=== PATIENT | female | born 1980 | race Caucasian/White ===

== ENCOUNTER 2017-03-30 09:33 | Emergency (ER) | payer OTHER ==
[~2017-03-30] VITALS: Ht 172.7 cm; Wt 83.9 kg
[~2017-03-30 09:33] MED LIST: ACETAMINOPHEN-1 EAC1 PO; AUGMENTIN 875875 M1 PO; BACTRIM DS TAB1 EAC1 PO; BACTRIM DS TAB1 EACH PO; CLONAZEPAM 0.50.5 M1 PO; IBUPROFEN 800800 M1 PO; IBUPROFEN200 M2 PO; KEFLEX500 M1 PO; KEFLEX500 MG PO; LEVAQUIN 500 M500 MG PO; LISINOPRIL20 MG PO; LOPRESSOR50 PO; NICOTINE TRANSD21 M1 TD; NORCO 5-325 TA1 EACH PO; PERCOCET 5-3251 EACH PO; PERCOCET PO; TRAMADOL 50 MG50 MG PO; TUMS PO; ULTRAM 50MG TAB50 MG PO; ZOFRAN ODT4 MG PO
[2017-03-30 09:53] LABS: URINE BILIRUBIN NEGATIVE (Negative); URINE BLOOD NEGATIVE (Negative); URINE CLARITY CLEAR; URINE COLOR YELLOW; URINE GLUCOSE-RANDOM NEGATIVE (Negative); URINE KETONES NEGATIVE (Negative); URINE LEUKOCYTES-REFLEX TRACE (Negative); URINE NITRITE-REFLEX NEGATIVE (Negative); URINE PROTEIN NEGATIVE (Negative); URINE SPECIFIC GRAVITY >= 1.030 (1.005-1.030); URINE UROBILINOGEN 0.2 E.U./dl (0.2-1.0)
[2017-03-30 10:01] LABS: ABSOLUTE EOSINOPHILS 0.1 thou/uL (0.0-0.7); ABSOLUTE LYMPHOCYTES 1.5 thou/uL (0.8-5.3); ABSOLUTE MONOCYTES 0.5 thou/uL (0.0-1.2); ABSOLUTE NEUTROPHILS 5.5 thou/uL (1.6-8.1); BASOPHILS 0.5 %; HEMATOCRIT 44.5 % (37.0-47.0); HEMOGLOBIN 15.1 gm/dL (12.0-15.0); LYMPHOCYTES 19.2 %; MCH 32.9 pg (26.0-34.0); MCHC 33.9 g/dL (28.0-37.0); MONOCYTES 6.5 %; MPV 8.3 fl. (7.2-11.1); NUCLEATED RBCS 0 /100WBC; PLATELET COUNT* 247 thou/uL (150-400); POLYS 72.8 %; RBC 4.59 mil/uL (4.20-5.00); RDW-CV 12.7 % (10.5-14.5); WBC 7.6 thou/uL (4.0-11.0)
[2017-03-30 10:07] LABS: CALCIUM 8.4 mg/dL (8.5-10.1); CREATININE 1.1 mg/dL (0.6-1.3); POTASSIUM 3.6 mmol/L (3.5-5.1)
[2017-03-30 10:09] LABS: BACTERIA-REFLEX 1-9 Few /HPF (None Seen); CASTS None Seen /LPF (None Seen); CRYSTALS None Seen /LPF (None Seen); MUCUS None Seen strn/LPF (None Seen); SQUAMOUS >10 Many /LPF (0-3); URINE RBC 0-2 Rare /HPF (0-2); URINE WBC-REFLEX 0-5 Rare /HPF (0-5)
[2017-03-30 10:11] LABS: ALBUMIN 3.4 g/dL (3.4-5.0); TOTAL BILIRUBIN 0.6 mg/dL (<0.1-1.0); TOTAL PROTEIN 7.2 g/dL (6.4-8.2)
[2017-03-30 10:35] VITALS: BP 157/95
== END 2017-03-30 10:36 | disposition home or self-care (01) ==
LOC: M.ERS 09:33
PROVIDERS: Family Medicine
DX: R10.10 Upper abdominal pain, unspecified (principal); I10 Essential (primary) hypertension; F41.9 Anxiety disorder, unspecified; F17.210 Nicotine dependence, cigarettes, uncomplicated; Z88.5 Allergy status to narcotic agent

== ENCOUNTER 2017-06-02 15:07 | Emergency (ER) | payer OTHER ==
[~2017-06-02] VITALS: Ht 172.7 cm; Wt 86.2 kg
[2017-06-02] MEDS ORDERED: FENOFIBRATE160 MG PO (15:21)
[2017-06-02] MEDS ORDERED: UNICOMPLEX M TA1 TA1 PO (15:21)
[2017-06-02] MEDS ORDERED: CLARITIN10 M3 PO (15:21)
[2017-06-02] MEDS ORDERED: KEFLEX500 M1 PO (15:45)
[2017-06-02] MEDS ORDERED: BACTRIM DS TAB1 EACH PO (15:45)
[2017-06-02] MEDS ORDERED: NORCO 5-325 TA1 EACH PO (15:48)
[2017-06-02 16:07] VITALS: BP 132/90
== END 2017-06-02 16:08 | disposition home or self-care (01) ==
LOC: M.ERS 15:07
DX: L02.412 Cutaneous abscess of left axilla (principal); I10 Essential (primary) hypertension; F41.9 Anxiety disorder, unspecified; E78.5 Hyperlipidemia, unspecified; F17.210 Nicotine dependence, cigarettes, uncomplicated; Z88.5 Allergy status to narcotic agent

== ENCOUNTER 2018-02-07 11:11 | Emergency (ER) | payer OTHER ==
[~2018-02-07] VITALS: Ht 175.3 cm; Wt 79.4 kg
[~2018-02-07 11:11] MED LIST changes: +CLARITIN10 M3 PO; +FENOFIBRATE160 MG PO; +UNICOMPLEX M TA1 TA1 PO
[2018-02-07 11:44] LABS: URINE BILIRUBIN NEGATIVE (Negative); URINE BLOOD NEGATIVE (Negative); URINE CLARITY CLEAR; URINE COLOR YELLOW; URINE GLUCOSE-RANDOM NEGATIVE (Negative); URINE KETONES NEGATIVE (Negative); URINE LEUKOCYTES 2+ (Negative); URINE NITRITE NEGATIVE (Negative); URINE PROTEIN NEGATIVE (Negative); URINE SPECIFIC GRAVITY 1.015 (1.005-1.030); URINE UROBILINOGEN 0.2 E.U./dl (0.2-1.0)
[2018-02-07 11:54] LABS: AMP/METHAMP Negative (Negative); BARBITURATES Negative (Negative); BENZODIAZEPINES Negative (Negative); COCAINE POSITIVE (Negative); METHADONE Negative (Negative); OPIATES Negative (Negative); PCP Negative (Negative); THC POSITIVE (Negative)
[2018-02-07 12:02] LABS: ABSOLUTE BASOPHILS 0.1 thou/uL (0.0-0.2); ABSOLUTE EOSINOPHILS 0.1 thou/uL (0.0-0.7); ABSOLUTE LYMPHOCYTES 1.8 thou/uL (0.8-5.3); ABSOLUTE MONOCYTES 0.8 thou/uL (0.0-1.2); ABSOLUTE NEUTROPHILS 7.8 thou/uL (1.6-8.1); BASOPHILS 0.7 %; EOSINOPHILS 0.7 %; HEMATOCRIT 43.1 % (37.0-47.0); HEMOGLOBIN 14.8 gm/dL (12.0-15.0); LYMPHOCYTES 16.8 %; MCH 33.7 pg (26.0-34.0); MCHC 34.4 g/dL (28.0-37.0); MCV 97.9 fL (80.0-100.0); MONOCYTES 7.7 %; MPV 8.5 fl. (7.2-11.1); NUCLEATED RBCS 0 /100WBC; PLATELET COUNT* 230 thou/uL (150-400); POLYS 74.1 %; RDW-CV 12.3 % (10.5-14.5); WBC 10.5 thou/uL (4.0-11.0)
[2018-02-07 12:09] LABS: ANION GAP 8 mmol/L (7-16); BUN 14 mg/dL (7-18); CALCIUM 9.1 mg/dL (8.5-10.1); CHLORIDE 103 mmol/L (98-107); CO2 27 mmol/L (21-32); CREATININE 1.2 mg/dL (0.6-1.3); GLUCOSE 86 mg/dL (70-99); POTASSIUM 4.4 mmol/L (3.5-5.1); SODIUM 138 mmol/L (136-145)
[2018-02-07 12:16] LABS: ALBUMIN 3.6 g/dL (3.4-5.0); ALKALINE PHOSPHATASE 90 U/L (46-116); AMYLASE 46 U/L (25-115); LIPASE 576 U/L (73-393); SGOT 30 U/L (15-37); SGPT 40 U/L (30-65); TOTAL BILIRUBIN 0.7 mg/dL (<0.1-1.0); TOTAL PROTEIN 7.5 g/dL (6.4-8.2); TROPONIN-I LEVEL <0.06 ng/mL (<0.06)
[2018-02-07 12:22] LABS: MUCUS >6 Heavy strn/LPF (None Seen); SQUAMOUS >10 Many /LPF (0-3)
[2018-02-07 12:23] LABS: CASTS None Seen /LPF (None Seen); CRYSTALS None Seen /LPF (None Seen); URINE RBC 0-2 Rare /HPF (0-2); URINE WBC 6-15 Few /HPF (0-5)
[2018-02-07] MEDS ORDERED: NORCO 5-325 TA1 EACH PO (14:16)
[2018-02-07] MEDS ORDERED: ONDANSETRON HCL4 M2 PO (14:16)
[2018-02-07] MEDS ORDERED: NABUMETONE 750750 M1 PO (14:18)
[2018-02-07 14:22] VITALS: BP 138/87
--- NOTE | 2018-02-08 11:20 | EKG ---
[place] [address] ELECTROCARDIOGRAM REPORT Name: PAUL GRAHAM Room: [facility]#: [id number] Admission: 02/07/18 Attend Phys: Discharge: 02/07/18 Date of : 80 Report #: [id number] THIS REPORT FOR: //name// [facility] ED Test Date: 2018-02-07 Test Time: 12:40:28 Pat Name: PAUL CALDERA Department: Room: Gender: F Critical Care Rn: ANA : 1980 Requested By: Ksenia Mendes Order Number: [id number] MD: Luis Card Measurements Intervals [place] Rate: 83 P: 71 CO: 139 QRS: 60 QRSD: 87 T: 45 QT: 407 QTc: 479 Interpretive Statements Sinus rhythm Probable left atrial enlargement RSR' in V1 or V2, probably normal variant Borderline prolonged QT interval Compared to ECG 01/13/2015 14:54:31 RSR' in V1 or V2 now present Sinus tachycardia no longer present Electronically Signed On 02-08-2018 11:20:39 MACHINE SORTER by Luis Card [email or web address] <ELECTRONICALLY SIGNED> By: Luis Card MD, FACC 02/08/18 1120 1240 1240 Luis Card MD, FAC /EPI
== END 2018-02-07 14:23 | disposition home or self-care (01) ==
LOC: M.ERS 11:11
PROVIDERS: Nurse Practitioner Family
DX: R10.13 Epigastric pain (principal); F14.10 Cocaine abuse, uncomplicated; R74.8 Abnormal levels of other serum enzymes; I10 Essential (primary) hypertension; E78.5 Hyperlipidemia, unspecified; F17.210 Nicotine dependence, cigarettes, uncomplicated; Z88.5 Allergy status to narcotic agent

== ENCOUNTER 2021-04-01 15:39 | Emergency (ER) | payer OTHER ==
[~2021-04-01] VITALS: Ht 172.7 cm; Wt 87.5 kg
[~2021-04-01 15:39] MED LIST changes: +NABUMETONE 750750 M1 PO; +ONDANSETRON HCL4 M2 PO
[2021-04-01] MEDS ORDERED: HYDROCODON-ACE1 EAC7 PO ×3 (16:46→18:34)
[2021-04-01] MEDS ORDERED: BACTRIM DS TAB1 EAC1 PO ×3 (16:46→18:34)
[2021-04-01] MEDS ORDERED: CEPHALEXIN500 MG PO ×3 (16:46→18:34)
[2021-04-01 16:52] VITALS: BP 149/65
== END 2021-04-01 16:52 | disposition home or self-care (01) ==
LOC: M.ERS 15:39
DX: L73.2 Hidradenitis suppurativa (principal); F17.210 Nicotine dependence, cigarettes, uncomplicated; Z88.5 Allergy status to narcotic agent; Z79.899 Other long term (current) drug therapy